=== PATIENT | female | born 1980 | race Caucasian/White ===

== ENCOUNTER 2019-02-15 07:28 | Inpatient (IN) | payer OTHER ==
[2019-02-08 12:53] VITALS: BMI 43.9
--- NOTE | 2019-02-15 12:19 | HP ---
Admitting History and Physical - Admission Chief Complaint: Morbid obesity History Source: Patient Limitations to Obtaining History: No Limitations - Past Medical History ...LMP: 01/23/19 - Past Surgical History Past Surgical History: Yes: Tubal Ligation - Smoking History Smoking history: Never smoked Have you smoked in the past 12 months: No - Alcohol/Substance Use Hx Alcohol Use: Yes (SOCIAL) Home Medications - Allergies Allergies/Adverse Reactions: Allergies Allergy/AdvReac Type Severity Reaction Status Date / Time sumatriptan [From Imitrex] Allergy Intermediate Rash Verified 02/15/19 07:47 - Home Medications Home Medications: Ambulatory Orders Cetirizine HCl [Zyrtec -] 10 mg PO DAILY 02/08/19 Multivit-Minerals/Folic Acid [Centrum Multigummies] 80 mcg PO DAILY 02/08/19 Famotidine [Pepcid] 20 mg PO BID #60 tablet 02/15/19 Oxycodone HCl/Acetaminophen [Percocet 5-325 mg Tablet] 1 - 2 tab PO Q6H #28 tab MDD 4 02/15/19 Family Disease History - Family Disease History Family History: Unremarkable Review of Systems - Review of Systems Constitutional: denies: Chills, Fever HENT: reports: No Symptoms Neck: reports: No Symptoms Cardiovascular: reports: No Symptoms Respiratory: reports: No Symptoms Gastrointestinal: reports: No Symptoms Neurological: reports: No Symptoms Pain Intensity: 0 Physical Examination Vital Signs: Vital Signs Temperature 98.7 F 02/15/19 08:09 Pulse Rate 75 02/15/19 08:09 Respiratory Rate 19 02/15/19 08:09 Blood Pressure 138/92 02/15/19 08:09 O2 Sat by Pulse Oximetry (%) 100 02/15/19 07:49 Constitutional: Yes: No Distress Neck: Yes: WNL Cardiovascular: Yes: WNL Respiratory: Yes: Regular Gastrointestinal: Yes: Soft, Abdomen, Obese Neurological: Yes: Alert, Oriented Problem List - Problems (1) Morbid obesity due to excess calories Code(s): E66.01 - MORBID (SEVERE) OBESITY DUE TO EXCESS CALORIES (2) BMI 40.0-44.9, adult Code(s): Z68.41 - BODY MASS INDEX (BMI) 40.0-44.9, ADULT Assessment/Plan Laparoscopic possible open vertical sleeve gastrectomy possible liver biposy, upper endoscopy
[2019-02-15] MEDS ORDERED: fentaNYL CITRATE 250 MCG/5 ML VIAL ONE (12:44)
[2019-02-15] MEDS ORDERED: PROPOFOL 20 ML ONE ×2 (12:45)
[2019-02-15] MEDS ORDERED: MIDAZOLAM HCL 2 MG/2 ML SINGLE DOSE VIAL ONE (12:45)
[2019-02-15] MEDS ORDERED: LIDOCAINE HCL/PF 2% SDV 5ML VIAL ONE (12:53)
[2019-02-15] MEDS ORDERED: ROCURONIUM BROMIDE 50 MG/5 ML VIAL ONE (13:00)
[2019-02-15] MEDS ORDERED: ONDANSETRON 4 MG/2 ML VIAL ONE ×2 (13:05→14:04)
[2019-02-15] MEDS ORDERED: DEXAMETHASONE SOD PHOSPHATE 4 MG/1 ML VIAL ONE (13:05)
[2019-02-15] MEDS ORDERED: BUPIVACAINE HCL/PF 2.5 MG/ML - 30 ML VIAL IJ ONE (13:07)
[2019-02-15] MEDS ORDERED: ceFAZolin SODIUM 1 GM VIAL ONE (13:17)
[2019-02-15] MEDS ORDERED: BUPIVACAINE HCL/PF 0.25% (2.5MG/ML) 10 ML VIAL IJ ONE (14:03)
[2019-02-15] MEDS ORDERED: NEOSTIGMINE METHYLSULFATE 0.5 MG/ML - 10 ML MDV ONE (14:03)
[2019-02-15] MEDS ORDERED: GLYCOPYRROLATE 0.2 MG/1 ML VIAL ONE (14:08)
[2019-02-15] MEDS ORDERED: PROMETHAZINE HCL 25 MG/1 ML VIAL IVPUSH PRN (14:11)
[2019-02-15] MEDS ORDERED: ONDANSETRON 4 MG/2 ML VIAL IVPUSH PRN (14:11)
[2019-02-15] MEDS ORDERED: HYDROmorphone HCL CARPU-JECT 1 MG/1 ML DISP.SYRIN IVPB PRN (14:13)
[2019-02-15] MEDS ORDERED: SODIUM CHLORIDE 1,000 ML IV SCH (14:15)
[2019-02-15] MEDS ORDERED: ONDANSETRON 4 MG/2 ML VIAL IVPUSH SCH (14:15)
[2019-02-15] MEDS ORDERED: LACTATED RINGERS SOLUTION 1,000 ML IV SCH (14:15)
--- NOTE | 2019-02-15 14:19 | OP ---
Operative Note - Note: Operative Date: 02/15/19 Pre-Operative Diagnosis: Morbid obesity. BMI 43.9 Operation: Diagnostic laparoscopy. Laparoscopic vertical sleev gastrectomy. Laparoscopic wedge liver biopsy Post-Operative Diagnosis: Same as Pre-op (as well as hepatomegaly) Surgeon: Abraham Cardozo Bread Baker: Bryce Marks Anesthesia: General Specimens Removed: Greater curvature of stomach. Liver biopsy Estimated Blood Loss (mls): 30 Drains & Tubes with Location: 36 fr Bougie Operative Report Dictated: Yes
[2019-02-15] MEDS ORDERED: HYDROmorphone HCL 0.5 MG/0.5 ML SYRINGE ONE ×2 (14:44→15:06)
[2019-02-15] MEDS ORDERED: FAMOTIDINE 20 MG/50 ML IVPB 20 MG/50 ML MG IVPB ONE (14:44)
[2019-02-15] MEDS: HYDROmorphone HCL CARPU-JECT 1 MG/1 ML DISP.SYRIN IVPUSH PRN ×3 (14:45→15:05)
[2019-02-15] MEDS: METOCLOPRAMIDE HCL INJECTION 10 MG/2 ML VIAL IVPUSH SCH ×3 (14:50→21:13)
[2019-02-15] MEDS ORDERED: FAMOTIDINE 20 MG PREMIXED IVPB IVPB ONE ×2 (14:55→15:00)
[2019-02-15] MEDS: ACETAMINOPHEN 1000 MG/100 ML VIAL (NON FORMULARY) IVPB ONE ×3 (15:00→16:25)
[2019-02-15] MEDS: ACETAMINOPHEN 1000 MG/100 ML VIAL (NON FORMULARY) IVPB SCH ×2 (16:26→21:09)
[2019-02-15 16:37] LABS: HEMATOCRIT 38.1 % (32.4-45.2); HEMOGLOBIN 12.2 GM/dl (10.7-15.3); MCH 26.7 pg (25.7-33.7); MCHC 31.9 g/dl (32.0-36.0); MEAN CELL VOLUME 83.5 fl (80-96); PLATELET COUNT 263 K/MM3 (134-434); RBC 4.56 M/mm3 (3.60-5.2); RDW 13.5 % (11.6-15.6); WHITE BLOOD COUNT 17.3 K/mm3 (4.0-10.8)
[2019-02-15 17:02] LABS: ALBUMIN 3.4 g/dl (3.4-5.0); BILIRUBIN,TOTAL 1.7 mg/dl (0.2-1); CREATININE 0.8 mg/dl (0.55-1.3); TOT PROT 6.3 g/dl (6.4-8.2)
[2019-02-15] MEDS: ENOXAPARIN NA (PORCINE) 40 MG/0.4 ML DISP.SYRIN SQ SCH (21:13)
[2019-02-15] MEDS: FAMOTIDINE 20 MG/50 ML IVPB 20 MG/50 ML MG IVPB SCH (21:16)
[2019-02-16] MEDS: ACETAMINOPHEN 1000 MG/100 ML VIAL (NON FORMULARY) IVPB SCH ×2 (01:48→08:26)
[2019-02-16] MEDS: METOCLOPRAMIDE HCL INJECTION 10 MG/2 ML VIAL IVPUSH SCH ×2 (01:49→08:25)
--- NOTE | 2019-02-16 08:00 | SPEC ---
DATE OF OPERATION: 02/15/2019 SURGEON: Becky Cardozo MD ANATOMIC PATHOLOGY MANAGER: Bryce Marks MD PREOPERATIVE DIAGNOSIS: 1. Morbid obesity. 2. Body mass index 43.9. POSTOPERATIVE DIAGNOSIS: 1. Morbid obesity. 2. Body mass index 43.9. 3. Hepatomegaly. PROCEDURE: 1. Diagnostic laparoscopy. 2. Laparoscopic vertical sleeve gastrectomy. 3. Laparoscopic wedge liver biopsy. ESTIMATED BLOOD LOSS: 30 mL. DRAINS: None. ANESTHESIA: GET. BOUGIE: A size 36-Maldivian. REASON FOR PROCEDURE: This is a 38-year-old female who presented for weight loss options. After describing different weight loss options, she decided to proceed with laparoscopic, possible open vertical sleeve gastrectomy, possible liver biopsy, possible upper endoscopy. RISKS AND BENEFITS: After describing the different options for weight loss management, the patient decided to proceed with a laparoscopic, possible open vertical sleeve gastrectomy. The patient was seen by the respective subspecialties and cleared for surgery. The risks and benefits of the procedure were explained. These included bleeding, infection, hernia, IN, DVT, PE, injury to surrounding structures including the liver, colon, bowel, spleen, esophagus, vessel injury, nerve injury, weight regain, gastric leak, staple line leak, sleeve leak, obstruction, vitamin deficiency, hair loss and as some of the possible complications. The patient understood and signed informed consent. DESCRIPTION OF PROCEDURE: The patient was placed supine on the operating room table. The patient underwent general endotracheal intubation. The arms were brought out at 90 degrees and secured. A footboard was placed and the legs were secured laterally with padding. The abdomen was prepped and draped in the usual sterile fashion. A timeout was performed. An incision was made in the left upper quadrant and a Veress needle inserted. Pneumoperitoneum was established. Subsequently, the Veress needle was removed and a 5-mm trocar was placed under direct visualization with the laparoscope. The laparoscopic camera was then inserted and inspection of the abdominal cavity was performed. An incision was then made in the supraumbilical area and a 15-mm trocar was placed under direct visualization. A 5-mm trocar was then placed in the right upper quadrant and a 5-mm trocar was placed below the left subcostal margin. A stab wound was made in the subxiphoid area and a Cheli clamp inserted and removed to dilate the tract. A Abiola liver retractor was inserted. The post was secured at the bedside by the nursing staff. The patient was placed in steep reverse Trendelenburg position and the Abiola liver retractor was used to secure the liver towards the anterior abdominal wall. The pylorus was identified and 6 cm proximal to it, the lesser sac was entered using the LigaSure device. All lateral attachments to the greater curvature of the stomach, including the short gastric vessels, were ligated using the LigaSure device toward the gastrosplenic and gastrophrenic ligaments. Once this was done in its entirety, it was confirmed that all tubes within the nasal or oropharyngeal cavity, including a temperature probe were removed by Anesthesia. The bougie was then inserted by Anesthesia. Transection of the stomach was then begun staying adjacent to the bougie but away from the angularis. Transection of the stomach was performed near the portion of the stomach where the lesser sac was entered. Two laparoscopic Endo-MERCED black georgi were used at this location. Laparoscopic Endo MERCED purple staple loads were then used for the remainder of the transection until the greater curvature of the stomach was fully transected. This was done staying close to the bougie. Care was taken to stay away from the angle of His cephalad. The staple line was then inspected. Hemostasis was identified. A leak test was then performed. It was clamped distally to the staple line. Irrigation solution was placed in the left upper quadrant and air was insufflated by Anesthesia into the sleeve. No leaks were identified. No obstruction was identified. This was done through the entirety of the staple line. The stomach was suctioned and the bougie removed fully intact under direct visualization. At this point, the irrigation solution was suctioned and again, hemostasis was noted. A wedge liver biopsy was then performed. The left lobe of the liver was identified. A portion of the edge of the left lobe of the liver was grasped. Using electrocautery, a wedge of the left liver was excised. The specimen was removed and sent off the field. Hemostasis of the wedge liver biopsy site was attained and noted using electrocautery. The 15-mm supraumbilical trocar was then removed and the greater curvature specimen removed from the site using a sponge stick mehta. A Hal-Darby device was then used to close the fascia with a 0 Vicryl suture at the site. Again, hemostasis was noted. The Abiola liver retractor was then removed under direct visualization. Pneumoperitoneum was desufflated. Hemostasis was noted at all incision sites and Marcaine was injected at all incision sites. A 3-0 Vicryl suture was used to close the deep subcutaneous tissue at the 15-mm incision site. All incision sites were closed using 4-0 Biosyn. Sterile dressings were applied. The patient tolerated the procedure well and was transferred to the recovery room in stable condition. BECKY CARDOZO M.D. [id number]
--- NOTE | 2019-02-16 08:07 | OP ---
DATE OF OPERATION: 02/15/[address] of service was [facility], [address] [place] [address] BECKY BLANKENSHIP M.D. [id number]
[2019-02-16 08:24] LABS: HEMATOCRIT 35.1 % (32.4-45.2); HEMOGLOBIN 11.8 GM/dl (10.7-15.3); MCH 28.2 pg (25.7-33.7); MCHC 33.7 g/dl (32.0-36.0); MEAN CELL VOLUME 83.6 fl (80-96); MEAN PLT VOLUME 10.5 fl (7.5-11.1); PLATELET COUNT 268 K/MM3 (134-434); RDW 13.1 % (11.6-15.6); WHITE BLOOD COUNT 13.2 K/mm3 (4.0-10.8)
[2019-02-16 08:26] LABS: ALBUMIN 3.1 g/dl (3.4-5.0); BILIRUBIN,TOTAL 0.7 mg/dl (0.2-1); CALCIUM 7.6 mg/dl (8.5-10); CREATININE 0.6 mg/dl (0.55-1.3); POTASSIUM 3.7 mmol/L (3.5-5.1); TOT PROT 6.3 g/dl (6.4-8.2)
[2019-02-16] MEDS: ENOXAPARIN NA (PORCINE) 40 MG/0.4 ML DISP.SYRIN SQ SCH (10:06)
[2019-02-16] MEDS: FAMOTIDINE 20 MG/50 ML IVPB 20 MG/50 ML MG IVPB SCH (10:06)
[2019-02-16 11:05] VITALS: BP 130/65; PULSE 70; TEMP 98.3
[2019-02-16] MEDS ORDERED: oxyCODONE HCL 5 MG TABLET PO PRN (13:06)
--- NOTE | 2019-02-16 13:08 | PN ---
Progress Note (short form) - Note Progress Note: POD 1 No acute events reported Vital Signs Period Temp Pulse Resp BP Sys/Aldridge Pulse Ox Last 24 Hr 97.9 F-99.2 F 63-88 16-19 111-143/48-89 95-99 CBC,CMP WBC 13.2 K/mm3 (4.0-10.8) H 02/16/19 07:37 RBC 4.20 M/mm3 (3.60-5.2) 02/16/19 07:37 Hgb 11.8 GM/dl (10.7-15.3) 02/16/19 07:37 Hct 35.1 % (32.4-45.2) 02/16/19 07:37 MCV 83.6 fl (80-96) 02/16/19 07:37 MCH 28.2 pg (25.7-33.7) 02/16/19 07:37 MCHC 33.7 g/dl (32.0-36.0) 02/16/19 07:37 RDW 13.1 % (11.6-15.6) 02/16/19 07:37 Plt Count 268 K/MM3 (134-434) 02/16/19 07:37 MPV 10.5 fl (7.5-11.1) 02/16/19 07:37 Sodium 135 mmol/L (136-145) L 02/16/19 07:37 Potassium 3.7 mmol/L (3.5-5.1) 02/16/19 07:37 Chloride 106 mmol/L (98-107) 02/16/19 07:37 Carbon Dioxide 22 mmol/L (21-32) 02/16/19 07:37 Anion Gap 7 MMOL/L (8-16) L 02/16/19 07:37 BUN 9.0 mg/dl (7-18) 02/16/19 07:37 Creatinine 0.6 mg/dl (0.55-1.3) 02/16/19 07:37 Est GFR (CKD-EPI)AfAm 135.91 02/16/19 07:37 Est GFR (CKD-EPI)NonAf 117.26 02/16/19 07:37 Random Glucose 112 mg/dl (74-106) H 02/16/19 07:37 Calcium 7.6 mg/dl (8.5-10) L 02/16/19 07:37 Total Bilirubin 0.7 mg/dl (0.2-1) 02/16/19 07:37 AST 39 U/L (15-37) H 02/16/19 07:37 ALT 31 U/L (13-61) 02/16/19 07:37 Alkaline Phosphatase 44 U/L (45-117) L 02/16/19 07:37 Total Protein 6.3 g/dl (6.4-8.2) L 02/16/19 07:37 Albumin 3.1 g/dl (3.4-5.0) L 02/16/19 07:37 UGI: no leak/obstruction Clears Discharge home Problem List - Problems (1) Morbid obesity due to excess calories Code(s): E66.01 - MORBID (SEVERE) OBESITY DUE TO EXCESS CALORIES (2) BMI 40.0-44.9, adult Code(s): Z68.41 - BODY MASS INDEX (BMI) 40.0-44.9, ADULT
[2019-02-16] MEDS ORDERED: SODIUM CHLORIDE 1,000 ML IV SCH (13:15)
--- NOTE | 2019-02-16 14:14 | PN ---
Progress Note (short form) - Note Progress Note: ANESTHESIA POSTOP 38 YO female, POD#1, s/p gastric sleeve, GETA Patient resting in bed. No complaints. Pain adequately controlled. Ambulating as tolerated. VSS, Afebrile Continue current care, encouraged IS, no anesthetic complications
--- NOTE | 2019-02-17 15:54 | PATH ---
Surgical Pathology Report Patient Name: RAMÓN LAU Med. Rec. #: [id number] /Age/Gender: 1980 (Age: 38) / F Account: [id number] Location: [facility] Taken: 02/15/2019 Received: 02/15/2019 Reported: 02/17/2019 Physicians: Abraham Cardozo M.D. Specimen(s) Received A: GREATER CURVATURE OF STOMACH B: LIVER BIOPSY Clinical History Morbid obesity Final Diagnosis A. GREATER CURVATURE OF STOMACH, LAPAROSCOPIC GASTRIC SLEEVE EXCISION: PORTION OF STOMACH SHOWING MILD CHRONIC GASTRITIS. IMMUNOSTAIN IS NEGATIVE FOR H. PYLORI ORGANISMS. B. LIVER, WEDGE BIOPSY: LIVER PARENCHYMA WITH NO SIGNIFICANT PATHOLOGIC FINDINGS. IRON STAIN SHOWS NO APPRECIABLE INCREASE IN IRON. RETICULIN STAIN SHOWS NO SIGNIFICANT INCREASE IN FIBROSIS. Electronically Signed Ivana Rizo M.D. Gross Description A. Received in formalin, labeled "greater curvature of stomach," is a 76 gram, 15.0 x 2.8 x 2.5 cm. portion of stomach with a stapled margin of resection. The serosa is dominguez-harris with minimal attached fat. The mucosa is dominguez-pink with normal folds. No mucosal masses are identified. [employer] Professor sections are submitted in one cassette. B. Received in formalin labeled "liver biopsy," is a 3.0 x 1.3 x 0.6 cm dominguez portion of soft tissue, consistent with a wedge of liver. [employer] Professor sections are submitted in one cassette. /02/16/2019 saudi02/16/2019
== END 2019-02-16 15:41 | disposition home or self-care (01) | DRG 403 ==
LOC: FM/S 07:28
PROVIDERS: ADMIT Surgery; ATTEND Surgery
PROC: 0WJP4ZZ Inspection of Gastrointestinal Tract, Percutaneous Endoscopic Approach (ICD-10-PCS; 2019-02-15)
PROC: 0DB64Z3 Excision of Stomach, Percutaneous Endoscopic Approach, Vertical (ICD-10-PCS; principal; 2019-02-15 13:25)
PROC: 0FB24ZX Excision of Left Lobe Liver, Percutaneous Endoscopic Approach, Diagnostic (ICD-10-PCS; 2019-02-15 13:25)
DX: E66.01 Morbid (severe) obesity due to excess calories (principal); Z68.41 Body mass index [BMI] 40.0-44.9, adult; R16.0 Hepatomegaly, not elsewhere classified
CPT/HCPCS: 36415; 74241-TC-FY; 80053; 84703; 85027; 86803; 88305-TC; 88313-TC; 94760; J0131; J7030